=== PATIENT | male | born 1950 | race Caucasian/White ===

== ENCOUNTER 2018-10-01 09:14 | Inpatient (IN) | payer MEDICARE ==
[2018-09-30 11:09] VITALS: BP 108/79
[2018-09-30 12:08] LABS: ALBUMIN 3.7 g/dL (3.4-5.0); ANION GAP 5 mmol/L (5-15); CALCIUM 9.8 mg/dL (8.5-10.1); CHLORIDE 103 mmol/L (98-107)
[2018-09-30 12:13] LABS: ALANINE AMINOTRANSFERASE 18 U/L (12-78); ALKALINE PHOSPHATASE 120 U/L (45-117); BILIRUBIN,TOTAL 0.5 mg/dL (0.2-1.0); CREATININE 0.85 mg/dL (0.7-1.3); TOTAL PROTEIN 7.7 g/dL (6.4-8.2)
[~2018-10-01] VITALS: Ht 188 cm; Wt 87.4 kg
[~2018-10-01 09:14] MED LIST: LISI-167 PO; LISINOPRIL; METH40TA3 PO; QUET100T PO; SULF-169 PO
[2018-10-01] MEDS ORDERED: LACTATED RINGERS 1,000 ML IV SCH (09:44)
[2018-10-01 10:05] LABS: AMPHETAMINE SCREEN, URINE Negative (Negative); BARBITURATE SCREEN, URINE Negative (Negative); BENZODIAZEPINE SCREEN, URINE Positive (Negative); CANNABINOID SCREEN, URINE Negative (Negative); COCAINE SCREEN, URINE Negative (Negative); METHADONE SCREEN, URINE Positive (Negative); OPIATE SCREEN, URINE Positive (Negative)
[2018-10-01] MEDS ORDERED: BUPIVACAINE/PF-EPI 0.5% 1:200K ONE (10:44)
[2018-10-01] MEDS ORDERED: BUPIVACAINE/PF 0.25% ONE ×2 (10:44→13:16)
[2018-10-01] MEDS ORDERED: EPINEPHRINE 1 MG/ML, 1ML ONE (10:45)
[2018-10-01] MEDS ORDERED: BACITRACIN 50,000 UNIT ONE (10:45)
[2018-10-01] MEDS ORDERED: NEOSPORIN OINT, 15GM ONE (10:45)
[2018-10-01] MEDS ORDERED: FENTANYL PF 250 MCG/5ML ONE ×3 (10:54→14:17)
[2018-10-01] MEDS ORDERED: DEXAMETHASONE 4 MG/ML, 1ML ONE (10:57)
[2018-10-01] MEDS ORDERED: SUCCINYLCHOLINE 20 MG/ML, 10ML ONE (11:25)
[2018-10-01] MEDS ORDERED: CEFAZOLIN 1,000 MG ONE (11:25)
[2018-10-01] MEDS ORDERED: ROCURONIUM 10MG/ML,5ML ONE (11:25)
[2018-10-01] MEDS ORDERED: ONDANSETRON 2MG/ML, 2ML ONE (11:25)
[2018-10-01] MEDS ORDERED: NEOSTIGMINE 1 MG/ML, 10ML ONE (11:25)
[2018-10-01] MEDS ORDERED: GLYCOPYRROLATE 0.2MG/1ML, 5ML ONE (11:25)
[2018-10-01] MEDS ORDERED: PROPOFOL 10 MG/ML, 20ML ONE (11:25)
[2018-10-01] MEDS ORDERED: BACITRACIN 50,000 UNIT IM ONE (11:51)
[2018-10-01] MEDS ORDERED: BUPIVACAINE/PF-EPI 0.5% 1:200K INFIL ONE (11:52)
[2018-10-01] MEDS ORDERED: FENTANYL PF 100 MCG/2ML ONE ×2 (12:27→13:28)
[2018-10-01] MEDS ORDERED: OXYcodone 5 MG/5 ML ORAL.SOL UDC PO PRN (12:30)
[2018-10-01] MEDS ORDERED: LABETALOL 5MG/ML, 20ML IV PRN (12:30)
[2018-10-01] MEDS ORDERED: ACETAMINOPHEN 325 MG TABLET PO PRN (12:30)
[2018-10-01] MEDS ORDERED: ONDANSETRON 2MG/ML, 2ML IV PRN (12:30)
[2018-10-01] MEDS ORDERED: ONDANSETRON ODT 8 MG PO PRN (12:30)
[2018-10-01] MEDS ORDERED: PROMETHAZINE 25 MG/ML, 1ML IV PRN (12:30)
[2018-10-01] MEDS ORDERED: hydrALAzine 20 MG/ML, 1ML IV PRN (12:30)
[2018-10-01] MEDS ORDERED: MEPERIDINE/PF 25MG/0.5ML IVPush PRN (12:30)
[2018-10-01] MEDS ORDERED: LORazepam 2 MG/ML, 1ML ONE (13:11)
[2018-10-01] MEDS ORDERED: HYDROmorphone 1 MG/ML, 1ML ONE (13:11)
[2018-10-01] MEDS: LORazepam 2 MG/ML, 1ML IVPush PRN ×2 (13:14→13:25)
[2018-10-01] MEDS: HYDROmorphone 2 MG/ML, 1ML IVPush PRN ×2 (13:15→13:21)
[2018-10-01] MEDS ORDERED: OXYcodone 5 MG/5 ML ORAL.SOL UDC ONE (13:16)
[2018-10-01] MEDS: FENTANYL PF 100 MCG/2ML IV PRN ×2 (13:19→13:29)
[2018-10-01] MEDS ORDERED: ONDANSETRON 2MG/ML, 2ML IVPush PRN (14:00)
[2018-10-01] MEDS ORDERED: BUPIVACAINE/PF 0.5% ONE (14:04)
[2018-10-01] MEDS ORDERED: LABETALOL 20 MG/4 ML ONE ×2 (14:48)
[2018-10-01] MEDS ORDERED: hydrALAzine 20 MG/ML, 1ML ONE (14:48)
[2018-10-01] MEDS: OXYcodone 5 MG/5 ML ORAL.SOL UDC PO PRN ×2 (16:19→20:02)
[2018-10-01 19:40] VITALS: BP 133/99
[2018-10-01] MEDS: CEFAZOLIN PMX 1GM/50ML 50 ML IVPB SCH (19:47)
[2018-10-02] VITALS (9 sets, daily range): BP systolic 137–167; BP diastolic 94–118
[2018-10-02] MEDS: OXYcodone 5 MG/5 ML ORAL.SOL UDC PO PRN ×5 (00:30→21:05)
[2018-10-02] MEDS ORDERED: LABETALOL 5 MG/ML SYRINGE IVPush PRN (01:30)
[2018-10-02] MEDS: HYDROmorphone 2 MG/ML, 1ML IVPush PRN ×3 (02:59→06:28)
[2018-10-02] MEDS: CEFAZOLIN PMX 1GM/50ML 50 ML IVPB SCH (03:43)
[2018-10-02] MEDS: METHADONE 40 MG TABLET.SOL PO SCH (10:19)
[2018-10-02] MEDS: LISINOPRIL 10 MG TABLET PO SCH (10:20)
[2018-10-02] MEDS ORDERED: CALCIUM CARBONATE 500 MG TAB.CHEW PO PRN (16:00)
[2018-10-02] MEDS: FAMOTIDINE 20 MG/2 ML IVPush SCH ×2 (17:10→21:05)
[2018-10-02] MEDS: QUETIAPINE 100MG TABLET PO SCH (21:05)
[2018-10-03 01:22] VITALS: BP 132/91
[2018-10-03] MEDS: OXYcodone 5 MG/5 ML ORAL.SOL UDC PO PRN ×3 (01:36→11:00)
[2018-10-03 07:39] VITALS: BP 152/93
[2018-10-03] MEDS: LISINOPRIL 10 MG TABLET PO SCH (08:08)
[2018-10-03] MEDS: METHADONE 40 MG TABLET.SOL PO SCH (08:08)
[2018-10-03] MEDS: QUETIAPINE 100MG TABLET PO SCH (08:08)
[2018-10-03] MEDS ORDERED: PANTOPRAZOLE 40 MG IV IVPush SCH (09:00)
[2018-10-03] MEDS ORDERED: OXYC5TAB2 PO (11:01)
== END 2018-10-03 11:20 | disposition home or self-care (01) | DRG 493 ==
LOC: ORIP 09:14 → 4NOR 14:34 → DCLOUNGE 10-03 11:08
PROVIDERS: ADMIT Orthopaedic Surgery; ATTEND Orthopaedic Surgery
PROC: 0PSG04Z Reposition Left Humeral Shaft with Internal Fixation Device, Open Approach (ICD-10-PCS; 2018-10-01)
PROC: 0PUG07Z Supplement Left Humeral Shaft with Autologous Tissue Substitute, Open Approach (ICD-10-PCS; principal; 2018-10-01 11:30)
DX: S42.302K Unspecified fracture of shaft of humerus, left arm, subsequent encounter for fracture with nonunion (principal); F11.20 Opioid dependence, uncomplicated; E87.1 Hypo-osmolality and hyponatremia; Z72.0 Tobacco use; J44.9 Chronic obstructive pulmonary disease, unspecified; I10 Essential (primary) hypertension; X58.XXXD Exposure to other specified factors, subsequent encounter
CPT/HCPCS: 36415; 76000; 80053; 80307; 88304; 88311; 93005; C1713; G0378; J0171; J0690; J1100; J1170; J2405; J2704; J2710; J3010; J3490; C1762; C9113; J0330; J0360; J2060; J7120

== ENCOUNTER → 2020-09-07 | Outpatient (CLI) | payer MEDICARE ==
[~2020-09-07] MED LIST changes: +OXYC5TAB2 PO
[2020-09-07 17:14] LABS: CREATININE 3.39 mg/dL (0.7-1.3)
== END | disposition home or self-care (01) ==
LOC: RAD 16:19
PROVIDERS: ATTEND Physician Assistant
DX: I71.2 Thoracic aortic aneurysm, without rupture (principal); I71.4 Abdominal aortic aneurysm, without rupture; I71.9 Aortic aneurysm of unspecified site, without rupture; J43.9 Emphysema, unspecified
CPT/HCPCS: 36415; 71250; 74176; 82565